=== PATIENT | male | born 1965 | race Caucasian/White ===

== ENCOUNTER 2019-06-29 07:12 | Emergency (ER) | payer OTHER ==
[~2019-06-29] VITALS: Ht 182.9 cm; Wt 85.0 kg
[2019-06-29] MEDS ORDERED: NALOXONE 0.4 MG/ML, 1ML IVPush PRN (07:30)
[2019-06-29 07:57] LABS: BASOPHILS % (AUTO) 0 % (0-1); EOSINOPHILS # (AUTO) 0.06 x10^3/uL (0-0.4); EOSINOPHILS % (AUTO) 1 % (1-7); LYMPHOCYTES # (AUTO) 0.96 x10^3/uL (1-3.4); LYMPHOCYTES % (AUTO) 9 % (22-44); MD NO; MEAN CORPUSCULAR HEMOGLOBIN 29.4 pg (27.5-34.5); MEAN CORPUSCULAR HGB CONC 33.1 g/dL (33.2-36.2); MEAN CORPUSCULAR VOLUME 88.8 fL (81-97); MEAN PLATELET VOLUME 8.5 fL (7.4-10.4); MONOCYTES # (AUTO) 0.25 x10^3/uL (0.2-0.8); MONOCYTES % (AUTO) 2 % (2-9); NEUTROPHILS # (AUTO) 9.64 x10^3/uL (1.8-6.8); NEUTROPHILS % (AUTO) 88 % (42-75); PLATELET COUNT 299 x10^3/uL (130-400); RED BLOOD COUNT 4.97 x10^6/uL (4.38-5.82); RED CELL DISTRIBUTION WIDTH 14.5 % (9.4-14.8)
[2019-06-29 08:00] LABS: ANION GAP 9 mmol/L (5-15); CALCIUM 8.5 mg/dL (8.5-10.1); CHLORIDE 104 mmol/L (98-107); CREATININE 1.43 mg/dL (0.7-1.3)
--- NOTE | 2019-06-29 08:00 | NUR ---
pt remains ao4 sats 99 on ra
[2019-06-29] MEDS ORDERED: ONDANSETRON ODT 4 MG ONE (10:06)
--- NOTE | 2019-06-29 10:12 | NUR ---
AMBULATES WELL STEADY GAIT IS NAUSEATED ERP AWARE TO GIVE ZOFRAN
[2019-06-29] MEDS ORDERED: ONDANSETRON ODT 4 MG PO ONE (10:30)
[2019-06-29 10:36] VITALS: BP 142/78
== END 2019-06-29 10:38 | disposition home or self-care (01) ==
LOC: ED 08:18
DX: T40.601A Poisoning by unspecified narcotics, accidental (unintentional), initial encounter (principal); R73.9 Hyperglycemia, unspecified; R94.31 Abnormal electrocardiogram [ECG] [EKG]
CPT/HCPCS: 36415; 71045; 80048; 85025; 93005; 99284; Q0162